=== PATIENT | male | born 1985 | race Caucasian/White ===

== ENCOUNTER 2018-03-31 06:02 | Day surgery (SDC) | payer OTHER ==
[2018-03-27 16:40] VITALS: BMI 24.3
[2018-03-31] MEDS ORDERED: LIDOCAINE 1%/EPI 1:100000 (50 ML MULTI DOSE VIAL) INF ONE (09:10)
[2018-03-31] MEDS ORDERED: ONDANSETRON 4 MG/2 ML VIAL IVPUSH PRN (10:04)
[2018-03-31] MEDS ORDERED: oxyCODONE HCL 5 MG TABLET PO PRN ×2 (10:04)
[2018-03-31] MEDS ORDERED: ACETAMINOPHEN 325 MG TABLET (FP) PO PRN (10:04)
[2018-03-31] MEDS ORDERED: LACTATED RINGERS SOLUTION 1,000 ML IV SCH (10:15)
[2018-03-31 10:37] VITALS: TEMP 98.2
[2018-03-31 12:07] VITALS: BP 128/72; PULSE 66
--- NOTE | 2018-04-01 14:43 | OP ---
DATE OF OPERATION: 03/31/2018 SURGEON: Carlyn Sherman MD [employer]SEED [employer]IL REFINER: LILIANA Vidal PREOPERATIVE DIAGNOSES: 1. Right shoulder labral/Bankart repair with instability. 2. Right shoulder capsulitis. 3. Right shoulder impingement syndrome. 4. Right shoulder acromioclavicular joint disease. 5. Right shoulder superior labral tear with anterior-posterior synovitis. POSTOPERATIVE DIAGNOSES: 1. Right shoulder labral/Bankart repair with instability. 2. Right shoulder capsulitis. 3. Right shoulder impingement syndrome. 4. Right shoulder acromioclavicular joint disease. 5. Right shoulder superior labral tear with anterior-posterior synovitis. PROCEDURES: 1. Right shoulder arthroscopy with arthroscopic repair of anterior labrum and capsulorrhaphy. 2. Right shoulder arthroscopy with lysis of extensive adhesions. 3. Right shoulder arthroscopy with subacromial decompression. 4. Right shoulder arthroscopy with acromioclavicular resection, removal of distal clavicle and acromioclavicular joint. 5. Right shoulder arthroscopy with debridement; CPT codes 12663, 64689, 58957, 42649, 81758. FINDINGS: 1. Anterior cartilage injury, grade 2 to 3 anterior glenoid. 2. Partial biceps tear, 10%, with three type 1 superior labral tears from anterior to posterior. 3. Partial biceps tear, less than 20%. 4. Avulsed anterior labrum from the 2:30 position to the 5:30 position. 5. Thickened scar tissue, subacromial space. 6. Adhesions, subacromial space. 7. Adhesions, glenohumeral joint with synovitis. 8. Type 2 acromion with anterior spurring. 9. Inferior spurs of the clavicle with acromioclavicular joint disease. REPAIR TYPE: Anterior glenoid was debrided using a small bur, creating a bleeding surface. Anchors were placed at the 3:00 and 5:00 position at the site of maximum damage. A mattress suture was placed through the anterior tissue and secured to the anterior glenoid at the 5:00 position where a simple suture grabbed the capsule and anterior tissue securing it to a bleeding bone bed at the 3:00 position. DESCRIPTION OF PROCEDURE: Informed consent was obtained. The patient was taken to the operating room, where the upper extremity was prepped and draped in a sterile fashion. Scalene block was performed by Anesthesia. Using standard arthroscopic technique, a posterior incision portal was made, which allowed for introduction of a camera into the glenohumeral joint. Under direct visualization, an anterior incision and portal was made. Extensive and thickened synovitis was debrided. All loose cartilage was debrided. Rotator cuff was identified and evaluated, as were the subacromial and bursal surfaces. The posterior incision portal was redirected to the subacromial space, where a lateral incision and portal was made. Excessive and thickened synovium was removed throughout the subacromial space including the anterior scar tissue, posterior bursal and lateral bursa. The type 2 acromion was converted to a flattened type 1, removing the anterior and lateral spurring. Accessory portal was made at the acromioclavicular joint, removing the inferior spur of the distal clavicle at the acromioclavicular joint allowing for a distal clavicle partial resection. Shoulder was once again re-examined; all impingement was removed. The shoulder was drained. A single suture was placed in all portals and a sterile dressing was placed and the patient was transferred to recovery room without complication. The PA listed above was present and assisted at surgery. Their presence was absolutely medically necessary for the completion of the procedure. They helped hold the arthroscopy, pass instruments (and implants when indicated) and the procedure could not have been completed without their assistance. ADDENDUM: In the joint repairs listed above, the patient was noted to have extensive tearing of the anterior labrum. Repair, as stated above, was performed using local capsular tissue on remaining portion of labrum and secured to a bleeding bone bed using 2 anchors. CARLYN SHERMAN M.D. [id number]
== END 2018-03-31 11:45 | disposition home or self-care (01) ==
LOC: FASU 06:02
PROVIDERS: ATTEND Orthopaedic Surgery
PROC: 0PB94ZZ Excision of Right Clavicle, Percutaneous Endoscopic Approach (ICD-10-PCS; 2018-03-31)
PROC: 0RBJ4ZZ Excision of Right Shoulder Joint, Percutaneous Endoscopic Approach (ICD-10-PCS; 2018-03-31)
PROC: 0RQJ4ZZ Repair Right Shoulder Joint, Percutaneous Endoscopic Approach (ICD-10-PCS; principal; 2018-03-31 07:30)
DX: M25.311 Other instability, right shoulder (principal); M75.01 Adhesive capsulitis of right shoulder; M75.41 Impingement syndrome of right shoulder; M19.011 Primary osteoarthritis, right shoulder; M24.111 Other articular cartilage disorders, right shoulder
CPT/HCPCS: 94760